=== PATIENT | female | born 1985 | race Caucasian/White ===

== ENCOUNTER 2023-07-02 23:26 | Emergency (ER) | payer MEDICAID ==
[~2023-07-02] VITALS: Ht 162.5 cm; Wt 61.2 kg
[2023-07-03] MEDS ORDERED: AMOX-CLAV 875-1 EACH PO (00:13)
== END 2023-07-03 00:24 | disposition home or self-care (01) ==
LOC: ED 23:26
DX: J02.0 Streptococcal pharyngitis (principal); F17.210 Nicotine dependence, cigarettes, uncomplicated